=== PATIENT | female | born 1960 ===

== ENCOUNTER 2022-05-03 21:41 | Emergency (ER) | payer MEDICARE, MEDICAID ==
[2022-05-03] MEDS ORDERED: Lidocaine 1% 5 ML VIAL INJECT ONE (22:11)
[2022-05-03 22:56] LABS: AMPHETAMINES,URINE NEGATIVE (NEGATIVE); BARBITURATES,URINE NEGATIVE (NEGATIVE); BENZODIAZEPINE,URINE NEGATIVE (NEGATIVE); MDMA (ECSTASY), URINE NEGATIVE (NEGATIVE); METHADONE,URINE NEGATIVE (NEGATIVE); METHAMPHETAMINES,URINE NEGATIVE (NEGATIVE); OPIATES,URINE NEGATIVE (NEGATIVE); OXYCODONE,URINE NEGATIVE (NEGATIVE); PHENCYCLIDINE,URINE NEGATIVE (NEGATIVE); TCA,URINE NEGATIVE (NEGATIVE)
[2022-05-03 22:58] LABS: ANION GAP 17.8 mEq/L (7-13); CHLORIDE,CL 108 mmol/L (98-107); SODIUM,NA 143 mmol/L (136-145)
[2022-05-03 22:59] LABS: ESTIMATED GFR 69 mL/min (>=60)
[2022-05-03] MEDS ORDERED: Bacitracin Oint 1 GM U/D Packet TOP ONE (23:16)
[2022-05-04] MEDS ORDERED: Acetaminophen 325 MG Tab PO ONE (00:56)
== END 2022-05-04 01:05 | disposition home or self-care (01) ==
LOC: DL.ED 21:41 → EEVIPCON 21:41 → DL.ED 05-04 01:05
DX: S01.81XA Laceration without foreign body of other part of head, initial encounter (principal); S05.12XA Contusion of eyeball and orbital tissues, left eye, initial encounter; Z88.1 Allergy status to other antibiotic agents; Z91.018 Allergy to other foods; Z88.8 Allergy status to other drugs, medicaments and biological substances; W18.09XA Striking against other object with subsequent fall, initial encounter
CPT/HCPCS: 12011; 36415; 70450; 72125; 80053; 80305; 80307; 85025; 99282; 99284; A9270